=== PATIENT | male | born 1935 | race Caucasian/White ===

== ENCOUNTER 2018-12-01 11:00 | Emergency (ER) | payer MEDICARE, OTHER ==
[2018-12-01 11:19] VITALS: BP 135/85
--- NOTE | 2018-12-01 11:46 | EDM.PDOC ---
ED HPI GENERAL MEDICAL PROBLEM - General Chief Complaint: Laceration Stated Complaint: laceration, fall Time Seen by Provider: 12/01/18 11:36 Source of Information: Reports: Patient History Limitations: Reports: No Limitations - History of Present Illness INITIAL COMMENTS - FREE TEXT/NARRATIVE: Patient presents with small laceration left side of scalp sustained when he fell on ice. Denies LOC. No visual changes. No neck/back pain. Denies limb injury/other injuries. Tetanus is UTD. - Related Data Allergies Allergy/AdvReac Type Severity Reaction Status Date / Time morphine Allergy Hallucinati Verified 12/01/18 11:11 ons Home Meds: Home Meds Finasteride [Proscar] 5 mg PO DAILY 09/29/13 [History] Metoprolol Tartrate 25 mg PO DAILY 09/29/13 [History] Pravastatin Sodium 20 mg PO SUTUTH@199909/29/13 [History] Tamsulosin [Tamsulosin 24 Hr] 0.4 mg PO DAILY 09/29/13 [History] Aspirin 2 tab PO DAILY 12/01/18 [History] Furosemide 40 mg PO DAILY 12/01/18 [History] Past Medical History HEENT History: Reports: Hard of Hearing Cardiovascular History: Reports: Bypass, Heart Failure, High Cholesterol, Hypertension Gastrointestinal History: Reports: GERD Genitourinary History: Reports: BPH Endocrine/Metabolic History: Reports: Obesity/BMI 30+ - Past Surgical History Musculoskeletal Surgical History: Reports: Hip Replacement Social & Family History - Tobacco Use Smoking Status *Q: Former Smoker Used Tobacco, but Quit: Yes Month/Year Tobacco Last Used: quit 20 years ago - Caffeine Use Caffeine Use: Reports: Coffee - Recreational Drug Use Recreational Drug Use: No ED ROS GENERAL - Review of Systems Review Of Systems: ROS reveals no pertinent complaints other than HPI. ED EXAM, SKIN/RASH Exam: See Below Exam Limited By: No Limitations General Appearance: Alert, WD/WN, No Apparent Distress Eye Exam: Bilateral Eye: EOMI, PERRL Ears: Normal External Exam Nose: Normal Inspection Throat/Mouth: Normal Lips, Normal Voice, No Airway Compromise Head: Other (small laceration left side of head). No: Normocephalic, Facial Swelling, Facial Tenderness Neck: Normal Inspection, Supple, Non-Tender, Full Range of Motion. No: Lymphadenopathy (L), Tender Lateral, Tender Midline Respiratory/Chest: No Respiratory Distress, Chest Non-Tender GI/Abdominal: Soft Back Exam: No: Muscle Spasm, Paraspinal Tenderness, Vertebral Tenderness Extremities: Non-Tender Neurological: Alert, Oriented, Normal Cognition, Normal Gait, No Motor/Sensory Deficits Psychiatric: Normal Affect, Normal Mood Skin: Warm, Dry, Other (small laceration left [employer]) ED SKIN PROCEDURES - Laceration/Wound Repair Left Head Lac/Wound length In cm: 1.5 Appearance: Subcutaneous, Linear, Clean Skin Prep: Saline Exploration/Debridement/Repair: Wound Explored, In a Bloodless Field, Explored to Base, No Foreign Material Found Closed with: Vancleave # of Sutures: 4 Sterile Dressing Applied: None Tetanus Status Addressed: Yes Complications: No Course - Vital Signs Last Recorded V/S: Last Vital Signs Temp 36.4 C 12/01/18 11:05 Pulse 63 12/01/18 11:05 Resp 16 12/01/18 11:05 BP 135/85 12/01/18 11:05 Pulse Ox 94 L 12/01/18 11:05 - Re-Assessments/Exams Free Text/Narrative Re-Assessment/Exam: Laceration repaired. Wound care reviewed. Precautions reviewed. To follow up as needed if signs of infection or other problems/changes noted. Patient and left prior to receiving written discharge instructions. Departure - Departure Time of Disposition: 11:45 Disposition: Home, Self-Care 01 Condition: Good Clinical Impression: Laceration of scalp Qualifiers: Encounter type: initial encounter Qualified Code(s): S01.01XA - Laceration without foreign body of scalp, initial encounter - Discharge Information *PRESCRIPTION DRUG MONITORING PROGRAM REVIEWED*: Not Applicable *COPY OF PRESCRIPTION DRUG MONITORING REPORT IN PATIENT AMI: Not Applicable Instructions: Head Injury, Adult, Laceration Care, Adult, [id number], Stitches, Vancleave, or Adhesive Wound Closure, [id number] Referrals: PCP,Unknown [Ordering Only Provider] - Forms: ED Department Discharge Additional Instructions: [place] out in 7 days. Return as needed if you have problems or signs of infection.
== END 2018-12-01 11:55 | disposition home or self-care (01) ==
LOC: LL.ED 11:00
DX: S01.01XA Laceration without foreign body of scalp, initial encounter (principal); I11.0 Hypertensive heart disease with heart failure; I50.9 Heart failure, unspecified; E78.00 Pure hypercholesterolemia, unspecified; K21.9 Gastro-esophageal reflux disease without esophagitis; Z87.891 Personal history of nicotine dependence; Z88.5 Allergy status to narcotic agent; Z79.899 Other long term (current) drug therapy; Z79.82 Long term (current) use of aspirin; W00.0XXA Fall on same level due to ice and snow, initial encounter
CPT/HCPCS: 12001; 99282